=== PATIENT | male | born 1980 | race Caucasian/White ===

== ENCOUNTER 2016-11-15 09:34 | Outpatient (CLI) | payer SELFPAY | END 2016-11-15 09:35 | disposition home or self-care (01) | DX: Z02.81 Encounter for paternity testing (principal) ==

== ENCOUNTER 2021-07-01 12:51 | Outpatient (CLI) | payer OTHER ==
--- NOTE | 2021-07-01 14:06 | MRI Report ---
PROCEDURE: Cervical Spine W/O INDICATIONS: CERVICAL RADICULOPATHY TECHNIQUE: Noncontrast sagittal T1 spin echo and T2 fast spin echo, sagittal STIR, foraminal oblique sagittal T2 fast spin echo, and axial gradient echo or T2 fast spin echo through the cervical spine. COMPARISON: None. FINDINGS: Image quality: Excellent. Alignment and Curvature: There is normal bony alignment. Bone Marrow: Marrow demonstrates normal overall signal. Spinal Cord: Visualized spinal cord has normal size and signal. No cerebellar tonsillar herniation. Paraspinous Soft Tissues: No paravertebral masses. Prevertebral soft tissues are normal in thicknes s. C2-C3: No canal stenosis or foraminal stenosis. C3-C4: No canal stenosis or foraminal stenosis. C4-C5: Small left paracentral disc protrusion indents on the ventral cord resulting in mild stenosis of the left side of the canal. There is a minimal right paracentral disc protrusion abutting the cor d as well. Bilateral facet hypertrophy. Mild bilateral foraminal narrowing. C5-C6: Mild chronic disc height loss. Posterior disc plus osteophyte, flattening the ventral cord.. Bilateral uncovertebral joint hypertrophy. Short pedicles. AP diameter of the canal is 8.6 mm. Severe bilateral foraminal narrowing with impingement on the bila teral C6 nerve roots in the foramina. C6-C7: Posterior disc bulge. AP diameter of the canal is 10 mm. Bilateral facet hypertrophy. Uncover tebral joint hypertrophy. Mild to moderate right foraminal narrowing with mild flattening deformity o n the exiting right C7 nerve root. A left foraminal disc protrusion contributes to severe left forami nal narrowing and left foraminal C7 nerve root impingement. C7-T1: No canal stenosis or foraminal stenosis. IMPRESSION: 1. Cervical spondylitic change. 2. There is mild canal stenosis at C4-C5 secondary to disc protrusion. There is moderate canal stenos is at C5-C6. 3. There is severe bilateral foraminal narrowing at C5-C6. 4. At C6-C7, a left foraminal disc protrusion contributes to severe left foraminal narrowing. Reviewed by: Sam Muñoz MD on 07/01/2021 2:05 PM PDT Approved by: Sam Muñoz MD on 07/01/2021 2:05 PM PDT Station ID: [id number]
== END 2021-07-01 12:52 | disposition home or self-care (01) ==
LOC: DI 12:51
PROVIDERS: ATTEND Family Medicine
DX: M47.22 Other spondylosis with radiculopathy, cervical region (principal); M50.121 Cervical disc disorder at C4-C5 level with radiculopathy; M48.02 Spinal stenosis, cervical region